=== PATIENT | female | born 1950 | race Caucasian/White ===

== ENCOUNTER → 2016-12-25 | Outpatient (REF) | payer MEDICARE, MEDICAID ==
[~2016-12-25] MED LIST: ADV250INH INH; BACL5TA PO; CLON0.5T PO; CLONI1TA PO; COLA100C PO; CYMB60CA3 PO; DEPA500T2 PO; GABA600T PO; IRON325T PO; MORP15TA2 PO; MOTR200T44 PO; MS C30TA PO; OXYC10TA12 PO; OXYC5CAP28 PO; PANT20TA PO; PROP160C PO; SERAQUIL; TYLE325T5 PO; VITA500019 PO; VITATAB74 PO
[2016-12-25 13:57] LABS: FERRITIN 137 NG/ML (8-252); PERCENT SATURATION 13.9 % (13.2-37.4); TOTAL IRON BINDING CAPACITY 296 UG/DL (250-450); TOTAL PROTEIN 6.7 GM/DL (6.4-8.2)
[2016-12-25 14:31] LABS: REASON FOR REVIEW COMPREHENSIVE REVIEW
[2016-12-26 12:48] LABS: ALBUMIN 2.71 GM/DL (3.29-5.55); ALBUMIN % 40.4 % (55.8-66.1); GAMMA GLOBULIN % 17.2 % (11.1-18.8)
[2016-12-27 00:06] LABS: BETA 2 MICROGLOBULIN 2.8 mg/L (0.6-2.4); FREE KAPPA LIGHT CHAINS SERUM 48.1 mg/L (3.30-19.40); FREE LAMBDA LIGHT CHAINS SERUM 59.97 mg/L (5.71-26.30); KAPPA/LAMBDA RATIO SERUM 0.8 (0.26-1.65)
== END ==
LOC: M LAB REF 13:10
PROVIDERS: ATTEND Internal Medicine Medical Oncology
DX: D64.9 Anemia, unspecified (principal)

== ENCOUNTER → 2017-01-13 | Outpatient (CLI) | payer MEDICARE, MEDICAID ==
[2017-01-13 16:02] LABS: MEAN CORPUSCULAR HEMOGLOBIN 28.8 pg (27.0-33.0); MEAN CORPUSCULAR HGB CONC 32.2 g/dl (32.0-36.5); MEAN CORPUSCULAR VOLUME 89.3 fl (80.0-96.0); RED CELL DISTRIBUTION WIDTH 14.6 % (11.5-14.5); WHITE BLOOD COUNT 7.6 K/mm3 (4.0-10.0)
== END ==
LOC: M LAB 15:13
PROVIDERS: ATTEND Physician Assistant Medical
DX: D50.9 Iron deficiency anemia, unspecified (principal)

== ENCOUNTER → 2017-01-21 | Outpatient (CLI) | payer MEDICARE, MEDICAID ==
[~2017-01-21] MED LIST changes: +GASTROGRAFIN SOLUTION 30ML (Q9963) As Ordered ONE; +ISOVUE-370 76% 100ML VIAL (Q9967) As Ordered ONE
--- NOTE | 2017-01-22 10:07 | REP ---
CT abdomen and pelvis without and with IV contrast: With oral contrast. History: Iron deficiency anemia. Comparison study April 11, 2015. CT contrast dose: 100 ml of Isovue [address] findings: Preliminary digital fitting room supervisor radiograph demonstrates clips in the right inguinal soft tissues and in the right upper quadrant. Bowel gas pattern is unremarkable. The liver and spleen are normal in size, homogeneous in texture. The intraluminal blood in the cardiac chambers is somewhat hypodense relative to myocardium consistent with the history of anemia. There is no evidence of pleural effusion. There is some atelectasis or scarring in the right middle lobe. No adrenal lesion is seen. The gallbladder is surgically absent with clips in the gallbladder fossa. Common bile duct measures 8 mm which is in normal range post cholecystectomy. There is a descending duodenal diverticulum. The main pancreatic duct is somewhat prominent measuring up to 4.7 mm. This is unchanged. The kidneys enhance symmetrically. There is a small peripheral cyst in the left mid kidney measuring 1.4 centimeters. The patient is status post hysterectomy. Small and large intestinal bowel loops are normal in the abdomen and pelvis. Normal appendix is seen. There are fairly numerous but normal-sized mesenteric lymph nodes in the small bowel mesentery. These are somewhat more prominent than on the prior study. No bowel wall mass lesion is seen. No free fluid or free air is observed. No abdominal wall defect seen. No bony destructive lesion is noted. Impression: 1. Post cholecystectomy and hysterectomy. Mildly dilated main pancreatic duct unchanged from prior CT. 2. Multiple normal-sized small bowel mesenteric lymph nodes increased from the prior CT etiology uncertain. 3. No other significant intra-abdominal abnormality. Mild discoid atelectasis versus scarring in the right middle lobe of the lung. Signed by Regino Bishop MD 01/22/2017 01:13 P
== END ==
LOC: M RAD 13:52
PROVIDERS: ATTEND Physician Assistant Medical
DX: D64.9 Anemia, unspecified (principal); R63.4 Abnormal weight loss
CPT/HCPCS: 74178; Q9963; Q9967

== ENCOUNTER → 2017-01-26 | Outpatient (CLI) | payer MEDICARE, MEDICAID ==
[~2017-01-26] MED LIST changes: +E-Z PAQUE 60% w/v SUSP 355ML BOTTLE As Ordered ONE; -GASTROGRAFIN SOLUTION 30ML (Q9963) As Ordered ONE; -ISOVUE-370 76% 100ML VIAL (Q9967) As Ordered ONE
--- NOTE | 2017-01-26 17:09 | REP ---
SMALL BOWEL FOLLOW-THROUGH: The procedure was performed under the direct supervision of Dr. Bishop. The images were reviewed with Dr. Bishop. The geoduck diver film shows no organomegaly or pathological masses. The intestinal gas pattern is nonspecific. There are surgical clips noted overlying the midline of the abdomen. There are also surgical clips and bowel sutures noted in the pelvis. There is scoliosis. There are degenerative changes of the spine. There are vascular calcifications identified. Liquid barium was administered and the barium column was followed through the small bowel to the level of the terminal ileum. Small bowel transit time is approximately 2 hours. Gentle palpation shows all loops are freely movable and pliable. There are diverticula seen within the duodenum, jejunum and tiny diverticula seen in the terminal ileum. There are no fixed or angulated loops. The small bowel mucosal pattern is normal in course and caliber. There is no transition to suggest a partial small bowel obstruction. Spot filming of the terminal ileum shows tiny diverticula, otherwise unremarkable. IMPRESSION: There is small bowel diverticulosis with diverticula seen in the duodenum, jejunum and tiny diverticula seen in the terminal ileum. 1 minute and 17 seconds of fluoroscopy time was utilized for this procedure. Reviewed by KEN Ambrosio 01/28/2017 08:30 AEdited and Signed by Regino Bishop MD 01/28/2017 06:13 P
== END ==
LOC: M RAD 08:30
PROVIDERS: ATTEND Physician Assistant Medical
DX: D64.9 Anemia, unspecified (principal); R63.4 Abnormal weight loss; K57.30 Diverticulosis of large intestine without perforation or abscess without bleeding

== ENCOUNTER → 2017-01-30 | Outpatient (REF) | payer MEDICARE, MEDICAID ==
[~2017-01-30] MED LIST changes: -E-Z PAQUE 60% w/v SUSP 355ML BOTTLE As Ordered ONE; +GABA-283 PO
[2017-01-30 13:15] LABS: FERRITIN 65 NG/ML (8-252)
[2017-01-30 13:39] LABS: VITAMIN B12 LEVEL 796 PG/ML (247-911)
== END ==
LOC: M LAB REF 12:25
PROVIDERS: ATTEND Internal Medicine Medical Oncology
DX: D53.9 Nutritional anemia, unspecified (principal)

== ENCOUNTER → 2017-02-05 | Outpatient (CLI) | payer MEDICARE, MEDICAID ==
[~2017-02-05] VITALS: Ht 170.2 cm; Wt 62.1 kg
[~2017-02-05] MED LIST changes: +LIDOCAINE 2% INJ 100 MG/5 ML SDV (FOR ANES.) As Ordered ONE; +LOSA100T36 PO; +NS 1,000 ML IV SCH; +PROPOFOL 200 MG/20 ML VIAL As Ordered ONE; +SIMETHICONE 40MG/0.6ML DROPS 30ML As Ordered ONE
--- NOTE | 2017-02-05 15:23 | ROOR ---
Patient Name: Tamra Masters Procedure Date: 02/05/2017 3:04 PM Date of : 1950 Age: 66 Room: [facility] Gender: Female Note Status: Finalized Procedure: Upper GI endoscopy Indications: Iron deficiency anemia Providers: Irvin SIMON MD Referring MD: Leobardo TAI MD, Fe Brady MD Requesting Provider: Medicines: Monitored Anesthesia Care Complications: No immediate complications. Procedure: Pre-Anesthesia Assessment: - The heart rate, respiratory rate, oxygen saturations, blood pressure, adequacy of pulmonary ventilation, and response to care were monitored throughout the procedure. The Endoscope was introduced through the mouth, and advanced to the third part of duodenum. The upper GI endoscopy was accomplished without difficulty. The patient tolerated the procedure well. Findings: The examined esophagus was normal. Mild inflammation was found in the gastric antrum. Biopsies were taken with a cold forceps for histology. Two diminutive angioectasias without bleeding were found in the first portion of the duodenum and in the second portion of the duodenum. Coagulation for tissue destruction using argon beam at 0.8 liters/minute and 35 trimble was successful. The exam of the duodenum was otherwise normal. Biopsies for histology were taken with a cold forceps in the second portion of the duodenum and in the third portion of the duodenum for evaluation of celiac disease. Impression: - Normal esophagus. - Mild antral gastritis. Biopsied. - Two tiny non-bleeding angioectasias in the duodenum. Treated with argon beam coagulation. - Biopsies in the duodenum were taken with a cold forceps for evaluation of celiac disease. Recommendation: - Observe patient's clinical course. - Perform a colonoscopy today. Irvin Simon MD Irvin SIMON MD 02/05/2017 3:23:29 PM This report has been signed electronically. Number of Addenda: 0 Note Initiated On: 02/05/2017 3:04 PM Estimated Blood Loss: Estimated blood loss: none.
--- NOTE | 2017-02-05 15:47 | ROOR ---
Patient Name: Tamra Masters Procedure Date: 02/05/2017 3:05 PM Date of : 1950 Age: 66 Room: [facility] Gender: Female Note Status: Finalized Procedure: Colonoscopy Indications: Anemia, Weight loss Providers: Irvin SIMON MD Referring MD: Leobardo TAI MD, Fe Brady MD Requesting Provider: Medicines: Monitored Anesthesia Care Complications: No immediate complications. Procedure: Pre-Anesthesia Assessment: - The heart rate, respiratory rate, oxygen saturations, blood pressure, adequacy of pulmonary ventilation, and response to care were monitored throughout the procedure. The Colonoscope was introduced through the anus and advanced to 4 cm into the ileum. The colonoscopy was performed without difficulty. The patient tolerated the procedure well. The quality of the bowel preparation was good. Findings: The perianal and digital rectal examinations were normal. (Exam: Complete, Prep: Good or Excellent.) Small Internal Hemorrhoids. The entire examined colon appeared normal on direct and retroflexion views. The terminal ileum appeared normal. Impression: - Small Internal Hemorrhoids. - The entire colon is normal on direct and retroflexion views. - The examined portion of the ileum was normal. - No specimens collected. Recommendation: - Continue present medications. Irvin Simon MD Irvin SIMON MD 02/05/2017 3:47:09 PM This report has been signed electronically. Number of Addenda: 0 Note Initiated On: 02/05/2017 3:05 PM Estimated Blood Loss: Estimated blood loss: none.
[2017-02-05 16:15] VITALS: BP 159/81
== END | disposition home or self-care (01) ==
LOC: M OPP 11:10
PROVIDERS: ATTEND Internal Medicine Gastroenterology
DX: D50.9 Iron deficiency anemia, unspecified (principal); R63.4 Abnormal weight loss; K64.8 Other hemorrhoids; K29.70 Gastritis, unspecified, without bleeding; K31.819 Angiodysplasia of stomach and duodenum without bleeding; I10 Essential (primary) hypertension; R12 Heartburn; M32.9 Systemic lupus erythematosus, unspecified; G43.909 Migraine, unspecified, not intractable, without status migrainosus; G62.9 Polyneuropathy, unspecified; G25.0 Essential tremor; Z86.73 Personal history of transient ischemic attack (TIA), and cerebral infarction without residual deficits; J44.9 Chronic obstructive pulmonary disease, unspecified; F41.9 Anxiety disorder, unspecified; F32.9 Major depressive disorder, single episode, unspecified; F17.210 Nicotine dependence, cigarettes, uncomplicated; Z88.0 Allergy status to penicillin; Z88.2 Allergy status to sulfonamides; Z88.8 Allergy status to other drugs, medicaments and biological substances; Z91.040 Latex allergy status; Z79.899 Other long term (current) drug therapy; Z80.8 Family history of malignant neoplasm of other organs or systems

== ENCOUNTER → 2017-03-13 | Outpatient (REF) | payer MEDICARE, MEDICAID ==
[~2017-03-13] MED LIST changes: -COLA100C PO; +COLA100C3 PO; -LIDOCAINE 2% INJ 100 MG/5 ML SDV (FOR ANES.) As Ordered ONE; -NS 1,000 ML IV SCH; -PROPOFOL 200 MG/20 ML VIAL As Ordered ONE; -SIMETHICONE 40MG/0.6ML DROPS 30ML As Ordered ONE
[2017-03-13 14:22] LABS: PERCENT SATURATION 7.3 % (13.2-37.4)
== END ==
LOC: M LAB REF 13:35
PROVIDERS: ATTEND Internal Medicine Medical Oncology
DX: D50.9 Iron deficiency anemia, unspecified (principal)

== ENCOUNTER → 2017-04-16 | Outpatient (CLI) | payer MEDICARE, MEDICAID ==
--- NOTE | 2017-04-16 14:10 | REP ---
REASON: Tobacco abuse. COMPARISON: Multiple, the latest of which is dated 12/19/2016 from [facility]. There is stable biapical pleuroparenchymal scarring. There are tiny stable inferior right middle lobe nodules. In the left upper lobe there is a 7 mm sized nodule representing a change from all priors. IMPRESSION: Positive screening CT examination of the lungs with a new left upper lobe nodule measuring 7 mm. Signed by Rei Garcia DO 04/16/2017 02:27 P
== END ==
LOC: M RAD 12:42
PROVIDERS: ATTEND Internal Medicine Medical Oncology
DX: Z12.2 Encounter for screening for malignant neoplasm of respiratory organs (principal); R91.8 Other nonspecific abnormal finding of lung field; F17.210 Nicotine dependence, cigarettes, uncomplicated

== ENCOUNTER → 2017-04-21 | Outpatient (REF) | payer MEDICARE, MEDICAID ==
[2017-04-21 14:01] LABS: PERCENT SATURATION 7.7 % (13.2-37.4)
== END ==
LOC: M LAB REF 13:17
PROVIDERS: ATTEND Internal Medicine Medical Oncology
DX: D50.9 Iron deficiency anemia, unspecified (principal)

== ENCOUNTER → 2017-04-30 | Outpatient (REF) | payer MEDICARE, MEDICAID | LOC: M LAB REF 10:40 | PROVIDERS: ATTEND Internal Medicine Medical Oncology | DX: D46.4 Refractory anemia, unspecified (principal) ==

== ENCOUNTER → 2017-05-11 | Outpatient (REF) | payer MEDICARE, MEDICAID ==
[2017-05-11 19:10] LABS: RETIC HEMOGLOBIN CONTENT CHr 33.8 PG (24-36); RETICULOCYTE % ADVIA2120 1.8 % (0.5-1.5)
[2017-05-11 20:25] LABS: IMMUNOGLOBULIN G 1250 MG/DL (681-1648); IMMUNOGLOBULIN M 50.5 MG/DL (40-230)
[2017-05-16 00:06] LABS: ANTI PARVO VIRUS LEVEL IGG 2.2 index (0.0-0.8); ANTI PARVO VIRUS LEVEL IgM 0.1 index (0.0-0.8); PARVOVIRUS B19 QUANT PCR Negative copies/mL (Negative); SJOGREN'S ANTI SS-A <0.2 AI (0.0-0.9); SJOGREN'S ANTI SS-B <0.2 AI (0.0-0.9)
== END ==
LOC: M LAB REF 16:41
PROVIDERS: ATTEND Internal Medicine Medical Oncology
DX: D64.9 Anemia, unspecified (principal)

== ENCOUNTER → 2017-05-14 | Outpatient (REF) | payer MEDICARE, MEDICAID ==
[~2017-05-14] MED LIST changes: -COLA100C3 PO; +COLA100C5 PO; -MS C30TA PO; +MS C30TA6 PO
== END ==
LOC: M LAB REF 11:15
PROVIDERS: ATTEND Internal Medicine Medical Oncology
DX: D64.9 Anemia, unspecified (principal)

== ENCOUNTER → 2017-08-04 | Outpatient (REF) | payer MEDICARE, MEDICAID | LOC: M LAB REF 12:59 | PROVIDERS: ATTEND Internal Medicine Medical Oncology | DX: D46.9 Myelodysplastic syndrome, unspecified (principal) ==

== ENCOUNTER → 2017-11-03 | Outpatient (CLI) | payer MEDICARE, MEDICAID ==
[~2017-11-03] MED LIST changes: +GASTROGRAFIN SOLUTION 30ML (Q9963) As Ordered ONE; +ISOVUE-370 76% 100ML VIAL (Q9967) As Ordered ONE
--- NOTE | 2017-11-04 15:27 | REP ---
CT CHEST WITH IV CONTRAST: HISTORY: Anemia. Weight loss. Question lymphoma, lymphadenopathy. COMPARISON: Chest x-ray 11/14/2014. CT CONTRAST DOSE: 100 mL of intravenous Isovue-370. CT FINDINGS: There is lobar atelectasis of the right middle lobe with air bronchograms and complete collapse. No endobronchial or peribronchial mass lesion is seen. There is some bronchial wall calcification noted bilaterally. No hilar or mediastinal mass or adenopathy is observed. In comparison with the upper cuts from CT study of the abdomen 01/21/2017, this appears to have been chronic, although it is incompletely seen on the prior CT study images. No pleural or pericardial effusion is seen. There is good opacification of the pulmonary arterial tree and the aorta and its branches. There is no evidence of pulmonary embolus, aortic dissection, or aneurysm. No adrenal lesion is seen on either side. There are clips in the gallbladder fossa post cholecystectomy. Mildly prominent intrahepatic and extrahepatic bile ducts are seen. Common bile duct measures 8 mm, which is normal post cholecystectomy. The pancreatic duct is mildly prominent as well. The pancreas is incompletely seen. These findings are unchanged from CT study 01/21/2017. There is a small cyst posterior to the left lower kidney. The lungs overall are otherwise hyperinflated but clear. No significant pulmonary nodule or mass lesion is seen. No bony destructive lesion is appreciated. There are mild degenerative disc changes in the thoracic spine. IMPRESSION: Chronic lobar collapsed right middle lobe. Otherwise, no active cardiopulmonary disease. The lungs are somewhat hyperinflated. Post cholecystectomy. Slightly prominent biliary tree and pancreatic ducts, unchanged from 01/21/2017. Signed by Regino Bishop MD 11/04/2017 04:58 P
--- NOTE | 2017-11-04 15:29 | REP ---
CT abdomen and pelvis with IV and oral contrast: History: Anemia. Weight loss. Question lymphoma or lymphadenopathy. Comparison CT study January [address] contrast dose: 100 mL of intravenous Isovue [address] findings: Digital preliminary account support associate radiograph shows clips in the right upper quadrant post cholecystectomy. Moderate stool is seen. The liver and the spleen are normal in size and homogeneous in texture. There is one tiny 4 mm cyst in the right lobe. Intrahepatic and periportal bile ducts are slightly prominent post cholecystectomy, but unchanged from the January 21, 2017 study. CBD is 0.8 cm. Main pancreatic duct is slightly prominent also unchanged from the prior study. No pancreatic mass lesion is observed. Kidneys enhance symmetrically and are morphologically intact. No retroperitoneal mass or adenopathy is seen. There is a large amount of formed stool throughout the colon. A normal appendix is seen. Formed stool is seen filling, but not dilating the rectum. No obstructive large or small bowel lesion is seen. No mesenteric mass or adenopathy is seen. No pelvic adenopathy or mass lesion is observed. There is diffuse osteopenia. No focal bony destructive lesion is seen. Impression: Moderate stool throughout the colon. Bile ducts and pancreatic duct at the upper range of normal post cholecystectomy, but unchanged from January 21, 2017. No acute abdominal or pelvic abnormality seen. Signed by Regino Bishop MD 11/04/2017 04:58 P
== END ==
LOC: M RAD 11:19
PROVIDERS: ATTEND Internal Medicine Medical Oncology
DX: D64.9 Anemia, unspecified (principal); R63.4 Abnormal weight loss
CPT/HCPCS: 71260; 74178; Q9963; Q9967

== ENCOUNTER 2017-11-23 12:18 | Emergency (ER) | payer MEDICARE, MEDICAID ==
[2017-11-23 13:13] LABS: BASO % 0.2 % (0.0-1.0); EOS # 0.2 10^3/uL (0.0-0.50); EOS % 2.4 % (0.0-3.0); HEMATOCRIT 25.5 % (36.0-47.0); HEMOGLOBIN 8.4 g/dl (12.0-16.0); IMMATURE GRANULOCYTE # 0.1 10^3/uL (0-0); IMMATURE GRANULOCYTE % 0.5 % (0-0); LYMPH # 0.8 10^3/uL (1.5-4.5); LYMPH % 8.1 % (24.0-44.0); MEAN CORPUSCULAR HEMOGLOBIN 30.1 pg (27.0-33.0); MEAN CORPUSCULAR HGB CONC 32.9 g/dl (32.0-36.5); MEAN CORPUSCULAR VOLUME 91.4 fl (80.0-96.0); MONO # 0.7 10^3/uL (0.0-0.8); MONO % 6.7 % (0.0-5.0); NEUTROPHILS # 8.3 10^3/uL (1.8-7.7); NEUTROPHILS % 82.1 % (36.0-66.0); PLATELET COUNT, AUTOMATED 350 10^3/uL (150-450); RED BLOOD COUNT 2.79 10^6/uL (4.00-5.40); RED CELL DISTRIBUTION WIDTH 18.3 % (11.5-14.5); WHITE BLOOD COUNT 10.1 10^3/uL (4.0-10.0)
[2017-11-23] MEDS: NS 1,000 ML IV (13:18)
[2017-11-23 13:26] LABS: INR 0.98
[2017-11-23 13:39] LABS: ANION GAP 8 MEQ/L (8-16); BLOOD UREA NITROGEN 13 MG/DL (7-18); CALCIUM LEVEL 8.4 MG/DL (8.8-10.2); CARBON DIOXIDE LEVEL 27 MEQ/L (21-32); CHLORIDE LEVEL 103 MEQ/L (98-107); CPK CREATINE PHOSPHOKINASE 44 U/L (26-192); CREATININE FOR GFR 1.03 MG/DL (0.55-1.02); GLOMERULAR FILTRATION RATE 57.1 (>45); GLUCOSE, FASTING 78 MG/DL (80-110); POTASSIUM SERUM 3.8 MEQ/L (3.5-5.1); SODIUM LEVEL 138 MEQ/L (136-145); TROPONIN I 0.02 NG/ML (< 0.10)
[2017-11-23 13:45] LABS: CK-MB VALUE MASS 3.3 NG/ML (0.0-3.6)
== END 2017-11-23 16:20 | disposition home or self-care (01) ==
LOC: M ED 12:18
DX: R55 Syncope and collapse (principal); D63.8 Anemia in other chronic diseases classified elsewhere; J45.909 Unspecified asthma, uncomplicated; J44.9 Chronic obstructive pulmonary disease, unspecified; I10 Essential (primary) hypertension; Z79.899 Other long term (current) drug therapy; Z88.1 Allergy status to other antibiotic agents; Z91.040 Latex allergy status; Z88.0 Allergy status to penicillin; Z88.2 Allergy status to sulfonamides; Z87.891 Personal history of nicotine dependence
CPT/HCPCS: 93005

== ENCOUNTER 2017-11-24 12:03 | Observation (INO) | payer MEDICARE, MEDICAID ==
[2017-11-24 14:31] LABS: BASO % 0.2 % (0.0-1.0); EOS # 0.2 10^3/uL (0.0-0.50); EOS % 1.6 % (0.0-3.0); HEMATOCRIT 25.1 % (36.0-47.0); HEMOGLOBIN 8.3 g/dl (12.0-16.0); IMMATURE GRANULOCYTE # 0.1 10^3/uL (0-0); IMMATURE GRANULOCYTE % 0.6 % (0-0); LYMPH # 0.8 10^3/uL (1.5-4.5); LYMPH % 6.4 % (24.0-44.0); MEAN CORPUSCULAR HEMOGLOBIN 30.3 pg (27.0-33.0); MEAN CORPUSCULAR HGB CONC 33.1 g/dl (32.0-36.5); MEAN CORPUSCULAR VOLUME 91.6 fl (80.0-96.0); MONO # 0.9 10^3/uL (0.0-0.8); MONO % 7.5 % (0.0-5.0); NEUTROPHILS # 10.2 10^3/uL (1.8-7.7); NEUTROPHILS % 83.7 % (36.0-66.0); PLATELET COUNT, AUTOMATED 337 10^3/uL (150-450); RED BLOOD COUNT 2.74 10^6/uL (4.00-5.40); RED CELL DISTRIBUTION WIDTH 18.2 % (11.5-14.5); WHITE BLOOD COUNT 12.1 10^3/uL (4.0-10.0)
[2017-11-24 14:46] LABS: ANION GAP 6 MEQ/L (8-16); BLOOD UREA NITROGEN 13 MG/DL (7-18); CALCIUM LEVEL 8.3 MG/DL (8.8-10.2); CARBON DIOXIDE LEVEL 27 MEQ/L (21-32); CHLORIDE LEVEL 106 MEQ/L (98-107); CPK CREATINE PHOSPHOKINASE 34 U/L (26-192); CREATININE FOR GFR 0.89 MG/DL (0.55-1.02); FREE T4 1.27 NG/DL (0.76-1.46); GLOMERULAR FILTRATION RATE > 60.0 (>45); GLUCOSE, FASTING 77 MG/DL (80-110); MAGNESIUM LEVEL 1.5 MG/DL (1.8-2.4); POTASSIUM SERUM 3.7 MEQ/L (3.5-5.1); SODIUM LEVEL 139 MEQ/L (136-145); TROPONIN I 0.03 NG/ML (< 0.10); VALPROIC ACID (DEPAKOTE) 50.2 UG/ML (50.0-100.0)
[2017-11-24 14:52] LABS: CK-MB VALUE MASS 2.5 NG/ML (0.0-3.6); MB/CK RELATIVE INDEX 7.35 (< OR =4)
[2017-11-24 15:13] LABS: PHOSPHORUS LEVEL 3.1 MG/DL (2.5-4.9)
[2017-11-24] MEDS: MAGNESIUM OXIDE 400 MG TAB (MAG-OX) PO ×3 (16:41)
[2017-11-24 16:43] LABS: IMMEDIATE SPIN CROSSMATCH 1 1
[2017-11-24] MEDS ORDERED: ONDANSETRON 4MG/2ML VIAL (J2405) IV ×3 (16:45)
[2017-11-24] MEDS ORDERED: DOCUSATE SODIUM 100 MG CAP PO ×3 (17:30)
[2017-11-24] MEDS: NS 1,000 ML IV ×3 (19:03)
[2017-11-24] MEDS: ACETAMINOPHEN TAB 650MG DOSE (2X325MG) PO ×3 (19:51)
[2017-11-24 20:24] LABS: HEMATOCRIT 30.8 % (36.0-47.0); HEMOGLOBIN 10.2 g/dl (12.0-16.0); MEAN CORPUSCULAR HEMOGLOBIN 30.1 pg (27.0-33.0); MEAN CORPUSCULAR HGB CONC 33.1 g/dl (32.0-36.5); MEAN CORPUSCULAR VOLUME 90.9 fl (80.0-96.0); PLATELET COUNT, AUTOMATED 346 10^3/uL (150-450); RED BLOOD COUNT 3.39 10^6/uL (4.00-5.40); RED CELL DISTRIBUTION WIDTH 17.1 % (11.5-14.5); WHITE BLOOD COUNT 12.4 10^3/uL (4.0-10.0)
[2017-11-24] MEDS: cloNIDine 0.1 MG TAB PO ×3 (22:47)
[2017-11-24] MEDS: DULoxetine 30 MG CAP (CYMBALTA) PO ×3 (22:48)
[2017-11-24] MEDS: DIVALPROEX 500MG *ER* TAB PO ×3 (22:49)
[2017-11-24] MEDS: GABAPENTIN 400 MG CAP PO ×3 (22:52)
[2017-11-24] MEDS: SENOKOT S TAB PO ×3 (22:53)
[2017-11-25] MEDS: ADVAIR HFA 115/21MCG INHALER INH ×9 (01:54→20:33)
[2017-11-25 06:32] LABS: HEMATOCRIT 27.3 % (36.0-47.0); HEMOGLOBIN 9.1 g/dl (12.0-16.0); MEAN CORPUSCULAR HEMOGLOBIN 29.9 pg (27.0-33.0); MEAN CORPUSCULAR HGB CONC 33.3 g/dl (32.0-36.5); MEAN CORPUSCULAR VOLUME 89.8 fl (80.0-96.0); PLATELET COUNT, AUTOMATED 306 10^3/uL (150-450); RED BLOOD COUNT 3.04 10^6/uL (4.00-5.40); RED CELL DISTRIBUTION WIDTH 17.2 % (11.5-14.5); WHITE BLOOD COUNT 13.7 10^3/uL (4.0-10.0)
[2017-11-25 07:03] LABS: ANION GAP 9 MEQ/L (8-16); BLOOD UREA NITROGEN 14 MG/DL (7-18); CALCIUM LEVEL 8.2 MG/DL (8.8-10.2); CARBON DIOXIDE LEVEL 24 MEQ/L (21-32); CHLORIDE LEVEL 110 MEQ/L (98-107); CREATININE FOR GFR 0.81 MG/DL (0.55-1.02); FERRITIN 142 NG/ML (8-252); GLOMERULAR FILTRATION RATE > 60.0 (>45); GLUCOSE, FASTING 78 MG/DL (80-110); IRON (FE) 74 UG/DL (50-170); PERCENT SATURATION 39.2 % (13.2-45.0); POTASSIUM SERUM 3.4 MEQ/L (3.5-5.1); SODIUM LEVEL 143 MEQ/L (136-145); TOTAL IRON BINDING CAPACITY 189 UG/DL (250-450)
[2017-11-25 07:55] LABS: MAGNESIUM LEVEL 1.4 MG/DL (1.8-2.4)
[2017-11-25] MEDS: GABAPENTIN 400 MG CAP PO ×9 (08:28→20:21)
[2017-11-25] MEDS: ACETAMINOPHEN TAB 650MG DOSE (2X325MG) PO ×3 (08:28)
[2017-11-25] MEDS: SENOKOT S TAB PO ×6 (08:28→20:21)
[2017-11-25] MEDS: PROPRANOLOL 60 MG LA CAP PO ×3 (08:30)
[2017-11-25] MEDS: cloNIDine 0.1 MG TAB PO ×6 (08:31→20:21)
[2017-11-25] MEDS: DULoxetine 30 MG CAP (CYMBALTA) PO ×6 (08:31→20:21)
[2017-11-25] MEDS: DIVALPROEX 500MG *ER* TAB PO ×12 (08:31→20:21)
[2017-11-25 11:01] LABS: VITAMIN B12 LEVEL 554 PG/ML (247-911)
[2017-11-25] MEDS: MAG SULF 1GM/100ML (MAG RUN) 1 GM in APPROPRIATE DILUENT 1 EA IV ×6 (11:05→12:22)
[2017-11-25] MEDS: POTASSIUM CHLORIDE 10 MEQ SR TABLET PO ×3 (11:06)
[2017-11-26] MEDS: ADVAIR HFA 115/21MCG INHALER INH ×3 (08:02)
[2017-11-26 09:33] LABS: HEMOGLOBIN 9.7 g/dl (12.0-16.0); MEAN CORPUSCULAR HEMOGLOBIN 30.4 pg (27.0-33.0); MEAN CORPUSCULAR HGB CONC 33.4 g/dl (32.0-36.5); MEAN CORPUSCULAR VOLUME 90.9 fl (80.0-96.0); PLATELET COUNT, AUTOMATED 342 10^3/uL (150-450); RED BLOOD COUNT 3.19 10^6/uL (4.00-5.40); RED CELL DISTRIBUTION WIDTH 17.5 % (11.5-14.5); WHITE BLOOD COUNT 13.8 10^3/uL (4.0-10.0)
[2017-11-26] MEDS: DIVALPROEX 500MG *ER* TAB PO ×3 (09:57)
[2017-11-26] MEDS: DULoxetine 30 MG CAP (CYMBALTA) PO ×3 (09:57)
[2017-11-26] MEDS: SENOKOT S TAB PO ×3 (09:57)
[2017-11-26] MEDS: PROPRANOLOL 60 MG LA CAP PO ×3 (09:57)
[2017-11-26] MEDS: cloNIDine 0.1 MG TAB PO ×3 (09:58)
[2017-11-26] MEDS: GABAPENTIN 400 MG CAP PO ×3 (09:58)
[2017-11-26 10:18] LABS: ANION GAP 12 MEQ/L (8-16); BLOOD UREA NITROGEN 13 MG/DL (7-18); CALCIUM LEVEL 8.4 MG/DL (8.8-10.2); CARBON DIOXIDE LEVEL 24 MEQ/L (21-32); CHLORIDE LEVEL 108 MEQ/L (98-107); CREATININE FOR GFR 0.69 MG/DL (0.55-1.02); GLOMERULAR FILTRATION RATE > 60.0 (>45); GLUCOSE, FASTING 68 MG/DL (80-110); MAGNESIUM LEVEL 2.1 MG/DL (1.8-2.4); POTASSIUM SERUM 3.7 MEQ/L (3.5-5.1); SODIUM LEVEL 144 MEQ/L (136-145)
== END 2017-11-26 13:15 | disposition home health service (06) ==
LOC: M MS5PR 11-25 16:14 → M ED 12:03 → M ED INP 16:39 → M PCU 18:28
DX: D64.9 Anemia, unspecified (principal); D46.9 Myelodysplastic syndrome, unspecified; J44.9 Chronic obstructive pulmonary disease, unspecified; I10 Essential (primary) hypertension; E83.39 Other disorders of phosphorus metabolism; E83.42 Hypomagnesemia; R51 Headache; F32.9 Major depressive disorder, single episode, unspecified; K21.9 Gastro-esophageal reflux disease without esophagitis; M19.90 Unspecified osteoarthritis, unspecified site; Z82.49 Family history of ischemic heart disease and other diseases of the circulatory system
CPT/HCPCS: J3475

== ENCOUNTER → 2018-02-02 | Outpatient (CLI) | payer MEDICARE, MEDICAID | LOC: M PLARAD 11:31 | DX: Z87.891 Personal history of nicotine dependence (principal); R63.4 Abnormal weight loss | CPT/HCPCS: 78815 ==

== ENCOUNTER → 2018-02-18 | Outpatient (REF) | payer MEDICAID, MEDICARE | LOC: M LAB REF 20:20 | DX: N39.0 Urinary tract infection, site not specified (principal) ==

== ENCOUNTER → 2018-05-24 | Outpatient (REF) | payer MEDICARE, MEDICAID ==
[2018-05-24 19:09] LABS: ERYTHROCYTE SEDIMENTATION RATE 22 mm/hr (0-30)
[2018-05-24 19:22] LABS: ESTIMATED AVERAGE GLUCOSE 120 MG/DL (60-110); HEMOGLOBIN A1c 5.8 %
[2018-05-24 19:27] LABS: FOLATE 22.4 NG/ML; VITAMIN B12 LEVEL > 2000 PG/ML
[2018-05-24 19:46] LABS: FREE T4 1.03 NG/DL (0.76-1.46); RHEUMATOID FACTOR QUANT < 10.0 IU/ML (<15.0)
[2018-05-24 19:46] LABS: VALPROIC ACID (DEPAKOTE) 53.8 UG/ML (50.0-100.0)
[2018-05-26 14:58] LABS: ANTINUCLEAR ANTIBODIES DIRECT Negative (Negative)
== END ==
LOC: M LABNEURO 14:11
DX: G62.9 Polyneuropathy, unspecified (principal); M54.2 Cervicalgia; M54.5 Low back pain
CPT/HCPCS: 82746

== ENCOUNTER → 2019-02-22 | Outpatient (CLI) | payer MEDICARE, MEDICAID ==
[~2019-02-22] MED LIST changes: +ADV500INH; +BACL-60 PO; -BACL5TA PO; +CLON0.2T PO; -CLON0.5T PO; +CLON0.5T8 PO; -GABA-283 PO; +GABA-843 PO; +GABA-845 PO; -GABA600T PO; +GABA600T4 PO; +GABA800T4 PO; -GASTROGRAFIN SOLUTION 30ML (Q9963) As Ordered ONE; -ISOVUE-370 76% 100ML VIAL (Q9967) As Ordered ONE; +KLOR20TA42 PO; -LOSA100T36 PO; +LOSA100T50 PO; +LYRI75CA PO; +METH25TA3 PO; +OXYCOD/APAP; -PANT20TA PO; +PANT20TA2 PO; +PANT40TA3 OR; +PERC7.5T11 PO; +PROP120C PO; +SPIR-10 PO; +VENTAER OR; +ZANTTAB9 PO
--- NOTE | 2019-02-25 13:38 | DEXA ---
AP SPINE L1 - L4 1.115 -0.6 1.0 LT FEMUR TOTAL 0.752 -2.0 -0.7 LT NECK 0.763 -2.0 -0.4 RT FEMUR TOTAL 0.723 -2.3 -0.9 RT NECK 0.709 -2.4 -0.8 TOTAL BODY TOTAL OTHER COMMENTS: Normal bone densitometry of the spine. There is low bone density of hips. FOLLOW-UP: Recommendation for the next bone density exam: 2 years. JODI
== END ==
LOC: M WHC 13:15
PROVIDERS: ATTEND Internal Medicine
DX: Z13.820 Encounter for screening for osteoporosis (principal); M85.89 Other specified disorders of bone density and structure, multiple sites

== ENCOUNTER 2019-06-15 13:30 | Observation (INO) | payer MEDICARE, MEDICAID ==
[~2019-06-15] VITALS: Ht 167.6 cm; Wt 84.2 kg
[~2019-06-15 13:30] MED LIST changes: +ACET-683 PO; +RANI75TA15 PO; +TETR1CAP PO; +VENTAER INH; -VENTAER OR
[2019-06-15 14:46] LABS: BASO % 0.2 % (0.0-1.0); HEMATOCRIT 29.7 % (36.0-47.0); HEMOGLOBIN 10.2 g/dl (12.0-15.5); LYMPH # 0.6 10^3/uL (1.5-4.5); LYMPH % 9.1 % (24.0-44.0); MEAN CORPUSCULAR HEMOGLOBIN 32.9 pg (27.0-33.0); MEAN CORPUSCULAR HGB CONC 34.3 g/dl (32.0-36.5); MEAN CORPUSCULAR VOLUME 95.8 fl (80.0-96.0); MONO # 0.2 10^3/uL (0.0-0.8); MONO % 3.6 % (0.0-5.0); NEUTROPHILS # 5.3 10^3/uL (1.8-7.7); NEUTROPHILS % 85.8 % (36.0-66.0); PLATELET COUNT, AUTOMATED 321 10^3/uL (150-450); WHITE BLOOD COUNT 6.1 10^3/uL (4.0-10.0)
[2019-06-15] MEDS ORDERED: GABAPENTIN 100 MG CAP PO ONE (15:15)
[2019-06-15] MEDS ORDERED: KETOROLAC 30 MG/ML VIAL (J1885) IV ONE (15:15)
[2019-06-15] MEDS: NS 1,000 ML IV SCH ×2 (15:18→21:55)
--- NOTE | 2019-06-15 15:51 | REP ---
Clinical: Chest pain. Admission. Comparison: 11/24/2017. Findings: Mediastinum and cardiac silhouette are stable. Lung manjarrez demonstrate chronic changes primarily involving the left base. Trace atelectasis cannot be excluded. No focal consolidation. No obvious effusion. No pneumothorax. Skeletal structures intact. Impression: Chronic-appearing changes. Electronically Signed by Rickey Solorio MD 06/15/2019 03:42 P
[2019-06-15 15:59] LABS: ALBUMIN 2.8 GM/DL (3.2-5.2); ALT/SGPT 13 U/L (12-78); BILIRUBIN,DIRECT 0.1 MG/DL (0.0-0.2); BILIRUBIN,TOTAL 0.3 MG/DL (0.2-1.0); BLOOD UREA NITROGEN 13 MG/DL (7-18); CALCIUM LEVEL 8.5 MG/DL (8.8-10.2); CARBON DIOXIDE LEVEL 28 MEQ/L (21-32); CHLORIDE LEVEL 90 MEQ/L (98-107); CREATININE FOR GFR 0.98 MG/DL (0.55-1.30); GLOMERULAR FILTRATION RATE > 60.0 (>45); GLUCOSE, FASTING 111 MG/DL (70-100); LIPASE 210 U/L (73-393); POTASSIUM SERUM 4.2 MEQ/L (3.5-5.1); SODIUM LEVEL 125 MEQ/L (136-145); TOTAL PROTEIN 6.3 GM/DL (6.4-8.2)
[2019-06-15] MEDS ORDERED: ACETAMINOPHEN TAB 650MG DOSE (2X325MG) PO PRN (17:00)
[2019-06-15] MEDS ORDERED: MAALOX 30 ML SUSP *UDC PO PRN (17:00)
[2019-06-15] MEDS ORDERED: MOM 30ML SUSPENSION UDC PO PRN (17:00)
[2019-06-15] MEDS ORDERED: CLONI1TA PO (17:23)
[2019-06-15] MEDS ORDERED: MAGN400T PO (17:23)
[2019-06-15] MEDS ORDERED: RANI1TAB38 PO (17:23)
[2019-06-15] MEDS ORDERED: POTA10TA67 PO (17:23)
[2019-06-15] MEDS ORDERED: ADV500INH INH (17:23)
[2019-06-15] MEDS ORDERED: DULO30CA9 PO (17:23)
[2019-06-15] MEDS ORDERED: FURO20TA2 PO (17:23)
[2019-06-15] MEDS ORDERED: NORT25CA2 PO (17:23)
[2019-06-15] MEDS ORDERED: GABA-845 PO (17:23)
[2019-06-15] MEDS ORDERED: ALBUTEROL 90 MCG/ACT 8GM HFA INHALER INH PRN (20:00)
[2019-06-15] MEDS: ADVAIR HFA 230/21MCG INHALER INH SCH (20:00)
[2019-06-15] MEDS ORDERED: DOCUSATE SODIUM 100 MG CAP PO PRN (20:00)
[2019-06-15 20:50] VITALS: BP 157/77
[2019-06-15] MEDS: DIVALPROEX 500MG *ER* TAB PO SCH (21:53)
[2019-06-15] MEDS: ENOXAPARIN 100MG/1ML SYRINGE (J1650) SC SCH (21:53)
[2019-06-15] MEDS: MAGNESIUM OXIDE 400 MG TAB (MAG-OX) PO SCH (21:53)
[2019-06-15] MEDS: POTASSIUM CHLORIDE 10 MEQ SR TABLET PO SCH (21:53)
[2019-06-15] MEDS: GABAPENTIN 400 MG CAP PO SCH (21:54)
[2019-06-15] MEDS: FAMOTIDINE 20 MG TAB PO SCH (21:54)
[2019-06-15] MEDS: DOCUSATE SODIUM 100 MG CAP PO SCH (21:54)
[2019-06-15] MEDS: cloNIDine 0.1 MG TAB PO SCH (21:54)
[2019-06-15] MEDS: PREGABALIN 75 MG CAP(LYRICA) PO SCH (21:55)
[2019-06-16 04:24] LABS: APPEARANCE, URINE CLEAR (CLEAR); BACTERIA, URINE AUTO NEGATIVE (NEGATIVE); BILIRUBIN, URINE AUTO NEGATIVE (NEGATIVE); BLOOD, URINE BLOOD NEGATIVE (NEGATIVE); COLOR, URINE YELLOW (YELLOW); GLUCOSE, URINE (UA) AUTO NEGATIVE (NEGATIVE); KETONE, URINE AUTO NEGATIVE (NEGATIVE); LEUKOCYTE ESTERASE, URINE AUTO NEGATIVE (NEGATIVE); NITRITE, URINE AUTO NEGATIVE (NEGATIVE); PROTEIN, URINE AUTO NEGATIVE (NEGATIVE); RBC, URINE AUTO 0 /HPF (0-3); SPECIFIC GRAVITY URINE AUTO 1.006 (1.002-1.035); SQUAMOUS EPITHELIAL CELL UR AU 1 /HPF (0-6); UROBILINOGEN, URINE AUTO 0.2 mg/dL (0.0-2.0); WBC, URINE AUTO 1 /HPF (0-3)
[2019-06-16 04:39] LABS: SODIUM,RANDOM URINE 45 MEQ/L
[2019-06-16 05:37] LABS: HEMOGLOBIN 9.3 g/dl (12.0-15.5); MEAN CORPUSCULAR HEMOGLOBIN 31.6 pg (27.0-33.0); MEAN CORPUSCULAR HGB CONC 33.2 g/dl (32.0-36.5); MEAN CORPUSCULAR VOLUME 95.2 fl (80.0-96.0); PLATELET COUNT, AUTOMATED 307 10^3/uL (150-450); RED BLOOD COUNT 2.94 10^6/uL (4.00-5.40); WHITE BLOOD COUNT 9.3 10^3/uL (4.0-10.0)
[2019-06-16] MEDS: PERCOCET 5MG/325MG TAB PO PRN ×2 (05:38→11:58)
[2019-06-16 05:58] LABS: BLOOD UREA NITROGEN 13 MG/DL (7-18); CALCIUM LEVEL 8.3 MG/DL (8.8-10.2); CARBON DIOXIDE LEVEL 29 MEQ/L (21-32); CHLORIDE LEVEL 97 MEQ/L (98-107); CREATININE FOR GFR 0.97 MG/DL (0.55-1.30); GLOMERULAR FILTRATION RATE > 60.0 (>45); GLUCOSE, FASTING 83 MG/DL (70-100); POTASSIUM SERUM 3.9 MEQ/L (3.5-5.1); SODIUM LEVEL 131 MEQ/L (136-145)
[2019-06-16 06:00] VITALS: BP 135/79
--- NOTE | 2019-06-16 08:18 | REP ---
Bilateral lower extremity deep vein duplex ultrasound: The deep veins demonstrate normal compression, normal Doppler color flow and normal Doppler waveforms with respiration and augmentation from the popliteal veins to the common femoral veins. Impression: There is no deep vein thrombus the right or left lower extremities . Electronically Signed by Alex Elias MD 06/16/2019 08:10 A
[2019-06-16] MEDS: PREGABALIN 75 MG CAP(LYRICA) PO SCH (08:41)
[2019-06-16 08:42] VITALS: BP 135/79
[2019-06-16] MEDS: DOCUSATE SODIUM 100 MG CAP PO SCH (08:42)
[2019-06-16] MEDS: cloNIDine 0.1 MG TAB PO SCH (08:42)
[2019-06-16] MEDS: FAMOTIDINE 20 MG TAB PO SCH (08:42)
[2019-06-16] MEDS: POTASSIUM CHLORIDE 10 MEQ SR TABLET PO SCH (08:42)
[2019-06-16] MEDS: DIVALPROEX 500MG *ER* TAB PO SCH (08:42)
[2019-06-16] MEDS: GABAPENTIN 400 MG CAP PO SCH (08:42)
[2019-06-16] MEDS: ENOXAPARIN 100MG/1ML SYRINGE (J1650) SC SCH (08:43)
[2019-06-16] MEDS: MAGNESIUM OXIDE 400 MG TAB (MAG-OX) PO SCH (08:43)
[2019-06-16] MEDS: ADVAIR HFA 230/21MCG INHALER INH SCH (08:49)
[2019-06-16] MEDS ORDERED: DULoxetine 30 MG CAP (CYMBALTA) PO SCH (09:00)
[2019-06-16] MEDS ORDERED: PROPRANOLOL 60 MG LA CAP PO SCH (09:00)
[2019-06-16] MEDS ORDERED: ENOXAPARIN 40 MG/0.4 ML SYRINGE (J1650) SC SCH (09:00)
[2019-06-16] MEDS ORDERED: FUROSEMIDE 20 MG TAB PO SCH (09:00)
--- NOTE | 2019-06-16 11:07 | HPEPDOC ---
General Date of Admission 06/15/19 Date of Service: Jun 15, 2019 Attending Physician: AIDA RYAN DO Chief Complaint The patient is a 68-year-old female admitted with a reason for visit of Abnormal Labs. Source: Patient Exam Limitations: No limitations Timing/Duration: Unsure Severity: Mild Associated Symptoms: Denies Symptoms History of Present Illness 68 yo female, recently hospitalized at [facility] 05/31/19 for hyponatremia, seen at PCP office and labs showed recurrent hyponatremia and patient sent to ED. Patient states recently treated last week for URI with zithromax and prednisone. States when left hospital at [facility] last week, her sodium was 135 (records pending). She had normal sodiums in 12/2018 and states no new medication changes. She denies N,V,D,Constipation, no WALSH, no fever, no CP, no SOB. States feels fine Home Medications Scheduled Clonidine Hcl (Clonidine HCl) 0.1 Mg Tablet, 0.1 MG PO BID, (Reported) Divalproex Sodium (Depakote ER) 500 Mg Tab, 500 MG PO TID, (Reported) REQUIRES BRAND NAME Duloxetine Hcl (Duloxetine HCl) 30 Mg Capsule.dr, 30 MG PO DAILY, (Reported) Furosemide (Furosemide) 20 Mg Tablet, 20 MG PO DAILY, (Reported) Gabapentin (Gabapentin) 400 Mg Capsule, 400 MG PO TID, (Reported) Magnesium Oxide (Magnesium Oxide) 400 Mg Tablet, 400 MG PO BID, (Reported) Nortriptyline HCl (Nortriptyline HCl) 25 Mg Capsule, 25 MG PO DAILY, (Reported) NEW MED, NOT STARTED Oxycodone HCl/Acetaminophen (Percocet 7.5-325 mg Tablet) 1 Tab Tab, 0.5 TAB PO BID, (Reported) Potassium Chloride (Potassium Chloride) 10 Meq Tab.er.prt, 10 MEQ PO BID, (Reported) Pregabalin (Lyrica) 75 Mg Cap, 75 MG PO TID, (Reported) Propranolol HCl (Propranolol HCl ER) 120 Mg Cap, 120 MG PO DAILY, (Reported) Ranitidine Hcl (Ranitidine HCl) 150 Mg Tablet, 1 TAB PO BID, (Reported) Salmeterol/Fluticasone (Advair 500-50 Diskus) 1 Each Blst.w.dev, 1 PUFF INH BID, (Reported) Scheduled PRN Acetaminophen (Acetaminophen) 500 Mg Tablet, 1,000 MG PO Q6H PRN for PAIN, (Reported) Albuterol Sulfate (Ventolin Hfa) 108 Mcg/Act Aer, 2 PUFFS INH Q4H PRN for SHORTNESS OF BREATH, (Reported) Docusate Sodium (Colace) 100 Mg Cap, 100 MG PO DAILY PRN for CONSTIPATION, (Reported) Allergies Coded Allergies: Cephalosporins (Verified Allergy, Severe, ANAPHYLAXIS, 02/14/19) latex (Verified Allergy, Severe, RASH, SWELLING, 02/14/19) Penicillins (Verified Allergy, Mild, RASH, 02/14/19) Sulfa (Sulfonamide Antibiotics) (Verified Allergy, Mild, RASH, VOMIT, 02/14/19) erythromycin base (Verified Allergy, Mild, RASH, 02/14/19) Past Medical History Medical History hypocellular myelodysplastic syndrome with refractory anemia CHF Tobacco dependence COPD HTN Degenerative joint disease hyponatremia Absence seizures Peripheral neuropathy secondary to chronic EtOH abuse in past Past surgery: Cholecystectomy Hysterectomy Family history: Father: DM/HTN Mother: CAD/Dementia Social Hx: quit tobacco in 2018 and restarted 1/2 ppd smoking 6 months ago Former ETOH user (off for several years) A-FIB/CHADSVASC A-FIB History Current/History of A-Fib/PAF?: No Review of Systems Other systems 10 systems reviewed and negative except as mentioned in HPI Physical Examination General Exam: Positive: Alert, Cooperative, No Acute Distress Eye Exam: Positive: PERRLA, Conjunctiva & lids normal, EOMI ENT Exam: Positive: Atraumatic, Mucous membr. moist/pink, Pharynx Normal Neck Exam: Positive: Supple, +2 carotid pulse wo bruit Chest Exam: Positive: Clear to auscultation, Normal air movement, Rhonchi (course scattered - cleared by cough); Negative: Rales, Wheezing Heart Exam: Positive: Rate Normal, Normal S1, Normal S2 Abdomen Exam: Positive: Normal bowel sounds, Soft (NT ND NABS) Extremity Exam: Positive: Edema, Normal pulses, Other (right leg with mild non pitting edema compared to left leg; right 3rd toe bruising; abrasions to bilateral toes/feet); Negative: Clubbing, Cyanosis Skin Exam: Positive: Nl turgor and temperature; Negative: Rash Neuro Exam: Positive: Strength at 5/5 X4 ext, Normal Tone, Sensation Intact, Cranial Nerves 3-12 NL, Reflexes 2+ Psych Exam: Positive: Mental status NL, Mood NL, Oriented x 3 Vital Signs Vital Signs Date Time Temp Pulse Resp B/P (MAP) Pulse Ox O2 Delivery O2 Flow Rate FiO2 06/15/19 15:16 62 18 153/75 (101) 96 Room Air 06/15/19 13:31 96.0 Laboratory Data Labs 24H Laboratory Tests 2 06/15/19 14:28: Immature Granulocyte % (Auto) 1.3, White Blood Count 6.1, Red Blood Count 3.10L, Hemoglobin 10.2L, Hematocrit 29.7L, Mean Corpuscular Volume 95.8, Mean Corpuscular Hemoglobin 32.9, Mean Corpuscular Hemoglobin Concent 34.3, Red Cell Distribution Width 13.9, Platelet Count 321, Neutrophils (%) (Auto) 85.8H, Lymphocytes (%) (Auto) 9.1L, Monocytes (%) (Auto) 3.6, Eosinophils (%) (Auto) 0.0, Basophils (%) (Auto) 0.2, Neutrophils # (Auto) 5.3, Lymphocytes # (Auto) 0.6L, Monocytes # (Auto) 0.2, Eosinophils # (Auto) 0.0, Basophils # (Auto) 0.0, Nucleated Red Blood Cells % (auto) 0.0 06/15/19 14:31: POC Glucose (Misc Panel) 119H, POC Sodium (Misc Panel) 123L, POC Potassium (Misc Panel) 4.2, POC Chloride (Misc Panel) 88L, POC Total CO2 (Misc Panel) 25.0, POC Blood Urea Nitrogen (Misc Panel 12, POC Ionized Calcium (Misc Panel) 4.6, POC Creatinine (Misc Panel) 0.9, POC Hematocrit (Misc Panel) 31.0L 06/15/19 15:14: Anion Gap 7L, Glomerular Filtration Rate > 60.0, Calcium Level 8.5L, Aspartate Amino Transf (AST/SGOT) 15, Alanine Aminotransferase (ALT/SGPT) 13, Alkaline Phosphatase 53, Total Bilirubin 0.3, Direct Bilirubin 0.1, Total Protein 6.3L, Albumin 2.8L, Albumin/Globulin Ratio 0.80L, Lipase 210 CBC/BMP Laboratory Tests 06/15/19 14:28 Red Blood Count 3.10 L, Mean Corpuscular Volume 95.8, Mean Corpuscular Hemoglobin 32.9, Mean Corpuscular Hemoglobin Concent 34.3, Red Cell Distribution Width 13.9, Neutrophils (%) (Auto) 85.8 H, Lymphocytes (%) (Auto) 9.1 L, Monocytes (%) (Auto) 3.6, Eosinophils (%) (Auto) 0.0, Basophils (%) (Auto) 0.2, Neutrophils # (Auto) 5.3, Lymphocytes # (Auto) 0.6 L, Monocytes # (Auto) 0.2, Eosinophils # (Auto) 0.0, Basophils # (Auto) 0.0 06/15/19 15:14 Assessment/Plan 1) hyponatremia - unclear etiology - started on IVF 100ccNS by ED provider. Repeat sodium at 2100 and in AM to avoid rapid rise in sodium. signed out to binder lockstitch. UA pending, urine sodium. consider fluid restriction once labs returned. If patient is euvolemic, consider starting samsca 2) Abscense seizure disorder - seizure precautions. follows with alisa Pearson. continue depakote, nuerotin, lyrica (no recent changes per pateint over past 2-3 years). n o recent seizure 3) leg edema - right more than left ; check US to r/o dvt 4) neuropathy secondary to prior history of etoh abuse 5) tobacco dependence - restarted smoking 6 months ago 6) COPD - nebs/MDI - no acute exacerbation. just finished course of prednisone and antibiotic when left [facility] last week. OBSERVATION CODE STATUS: FULL DVT PROPHYLAXIS: Lovenox Plan / VTE VTE Prophylaxis Ordered?: Yes AIDA RYAN DO Jun 15, 2019 16:57
--- NOTE | 2019-06-16 20:41 | DS.PDOC ---
Discharge Summary General Date of Admission Jun 15, 2019 at 16:52 Date of Discharge 06/16/19 Attending Physician: AIDA RYAN DO Discharge Summary PROCEDURES PERFORMED DURING STAY: none ADMITTING DIAGNOSES: 1. hyponatremia DISCHARGE DIAGNOSES: 1. hyponatremia 2. abscense seizures - stable 3. leg edema 4. peripheral neuropathy 5. tobacco dependence 6. COPD without exacerbation COMPLICATIONS/CHIEF COMPLAINT: Hyponatremia. HISTORY OF PRESENT ILLNESS: 68 yo female, recently hospitalized at [facility] 05/31/19 for hyponatremia, seen at PCP office and labs showed recurrent hy ponatremia and patient sent to ED. Patient states recently treated last week for URI with zithromax and prednisone. States when left hospital at [facility] last week, her sodium was 135 (records pending). She had normal sodiums in 12/2018 and states no new medication changes. She denies N,V,D,Constipation, no WALSH, no fever, no CP, no SOB. States feels fine. See H&P for details HOSPITAL COURSE: patient placed under observation. she was given IVF in ED. UA showed SG of 1.006 and it was suspected that her hyponatremia was due to water intoxication (pateint only drinks ren alie pop) and/ or medications. Fluid restriction ordered and her sodium improved to 131 prior to discharge. She remained asymptomatic. She had leg swelling right more than left and venous US showed no DVT. She was advised that she is on medications within the same family (ie gabapentin and lyrica) and may need her neurologist to review possibility of hyponatremia associated with medications. She is being discharge in stable condition DISCHARGE MEDICATIONS: Please see below. ALLERGIES: Please see below. PHYSICAL EXAMINATION ON DISCHARGE: VITAL SIGNS: Please see below. General: pleasant, NAD AAOx3 HRRR LCTA Ext: trace edema LABORATORY DATA: Please see below. PROGNOSIS: good ACTIVITY: as tolerated DIET: regular with 1000cc fluid restriction DISCHARGE PLAN: discharge home DISPOSITION: . DISCHARGE INSTRUCTIONS: follow up with neurology as previously scheduled follow up with PCP in 3-5 days to review sodium/labs lab on 06/20/19 for BMP fluid restriction 1000cc per 24 hours DISCHARGE CONDITION:stable TIME SPENT ON DISCHARGE: 30 minutes. Vital Signs/I&Os Vital Signs Date Time Temp Pulse Resp B/P (MAP) Pulse Ox O2 Delivery O2 Flow Rate FiO2 06/16/19 11:58 18 06/16/19 08:42 60 135/79 06/16/19 06:00 96.5 93 06/15/19 18:15 Room Air I&O- Last 24 Hours up to 6 AM 06/16/19 06:00 Intake Total 640 ml Output Total 800 ml Balance -160 ml Laboratory Data Labs 24H Laboratory Tests 2 06/15/19 14:28: Immature Granulocyte % (Auto) 1.3, White Blood Count 6.1, Red Blood Count 3.10L, Hemoglobin 10.2L, Hematocrit 29.7L, Mean Corpuscular Volume 95.8, Mean Corpuscular Hemoglobin 32.9, Mean Corpuscular Hemoglobin Concent 34.3, Red Cell Distribution Width 13.9, Platelet Count 321, Neutrophils (%) (Auto) 85.8H, Lymphocytes (%) (Auto) 9.1L, Monocytes (%) (Auto) 3.6, Eosinophils (%) (Auto) 0.0, Basophils (%) (Auto) 0.2, Neutrophils # (Auto) 5.3, Lymphocytes # (Auto) 0.6L, Monocytes # (Auto) 0.2, Eosinophils # (Auto) 0.0, Basophils # (Auto) 0.0, Nucleated Red Blood Cells % (auto) 0.0 06/15/19 14:31: POC Glucose (Misc Panel) 119H, POC Sodium (Misc Panel) 123L, POC Potassium (Misc Panel) 4.2, POC Chloride (Misc Panel) 88L, POC Total CO2 (Misc Panel) 25.0, POC Blood Urea Nitrogen (Misc Panel 12, POC Ionized Calcium (Misc Panel) 4.6, POC Creatinine (Misc Panel) 0.9, POC Hematocrit (Misc Panel) 31.0L 06/15/19 15:14: Anion Gap 7L, Glomerular Filtration Rate > 60.0, Calcium Level 8.5L, Aspartate Amino Transf (AST/SGOT) 15, Alanine Aminotransferase (ALT/SGPT) 13, Alkaline Phosphatase 53, Total Bilirubin 0.3, Direct Bilirubin 0.1, Total Protein 6.3L, Albumin 2.8L, Albumin/Globulin Ratio 0.80L, Lipase 210 06/16/19 04:09: Urine Appearance CLEAR, Urine Color YELLOW, Urine pH 7.0, Urine Specific [place] 1.006, Urine Protein NEGATIVE, Urine Glucose (UA) NEGATIVE, Urine Ketones NEGATIVE, Urine Urobilinogen 0.2, Urine Bilirubin NEGATIVE, Urine Leukocyte Esterase NEGATIVE, Urine Blood NEGATIVE, Urine Nitrite NEGATIVE, Urine WBC (Auto) 1, Urine RBC (Auto) 0, Urine Hyaline Casts (Auto) 0, Urine Bacteria (Auto) NEGATIVE, Urine Squamous Epithelial Cells 1, Urine Sperm (Auto) , Urine Random Sodium 45 06/16/19 05:04: Nucleated Red Blood Cells % (auto) 0.0, Anion Gap 5L, Glomerular Filtration Rate > 60.0, Blood Urea Nitrogen 13, Creatinine 0.97, Sodium Level 131L, Potassium Level 3.9, Chloride Level 97L, Carbon Dioxide Level 29, Calcium Level 8.3L CBC/BMP Laboratory Tests 06/15/19 14:28 Red Blood Count 3.10 L, Mean Corpuscular Volume 95.8, Mean Corpuscular Hemoglobin 32.9, Mean Corpuscular Hemoglobin Concent 34.3, Red Cell Distribution Width 13.9, Neutrophils (%) (Auto) 85.8 H, Lymphocytes (%) (Auto) 9.1 L, Monocytes (%) (Auto) 3.6, Eosinophils (%) (Auto) 0.0, Basophils (%) (Auto) 0.2, Neutrophils # (Auto) 5.3, Lymphocytes # (Auto) 0.6 L, Monocytes # (Auto) 0.2, Eosinophils # (Auto) 0.0, Basophils # (Auto) 0.0 06/15/19 15:14 06/15/19 21:15 06/16/19 05:04 Red Blood Count 2.94 L, Mean Corpuscular Volume 95.2, Mean Corpuscular Hemoglobin 31.6, Mean Corpuscular Hemoglobin Concent 33.2, Red Cell Distribution Width 14.0, Calcium Level 8.3 L Discharge Medications Scheduled Clonidine Hcl (Clonidine HCl) 0.1 Mg Tablet, 0.1 MG PO BID, (Reported) Divalproex Sodium (Depakote ER) 500 Mg Tab, 500 MG PO TID, (Reported) REQUIRES BRAND NAME Duloxetine Hcl (Duloxetine HCl) 30 Mg Capsule.dr, 30 MG PO DAILY, (Reported) Furosemide (Furosemide) 20 Mg Tablet, 20 MG PO DAILY, (Reported) Gabapentin (Gabapentin) 400 Mg Capsule, 400 MG PO TID, (Reported) Magnesium Oxide (Magnesium Oxide) 400 Mg Tablet, 400 MG PO BID, (Reported) Nortriptyline HCl (Nortriptyline HCl) 25 Mg Capsule, 25 MG PO DAILY, (Reported) NEW MED, NOT STARTED Oxycodone HCl/Acetaminophen (Percocet 7.5-325 mg Tablet) 1 Tab Tab, 0.5 TAB PO BID, (Reported) Potassium Chloride (Potassium Chloride) 10 Meq Tab.er.prt, 10 MEQ PO BID, (Reported) Pregabalin (Lyrica) 75 Mg Cap, 75 MG PO TID, (Reported) Propranolol HCl (Propranolol HCl ER) 120 Mg Cap, 120 MG PO DAILY, (Reported) Ranitidine Hcl (Ranitidine HCl) 150 Mg Tablet, 1 TAB PO BID, (Reported) Salmeterol/Fluticasone (Advair 500-50 Diskus) 1 Each Blst.w.dev, 1 PUFF INH BID, (Reported) Scheduled PRN Acetaminophen (Acetaminophen) 500 Mg Tablet, 1,000 MG PO Q6H PRN for PAIN, (R eported) Albuterol Sulfate (Ventolin Hfa) 108 Mcg/Act Aer, 2 PUFFS INH Q4H PRN for SHORTNESS OF BREATH, (Reported) Docusate Sodium (Colace) 100 Mg Cap, 100 MG PO DAILY PRN for CONSTIPATION, (Reported) Allergies Coded Allergies: Cephalosporins (Verified Allergy, Severe, ANAPHYLAXIS, 02/14/19) latex (Verified Allergy, Severe, RASH, SWELLING, 02/14/19) Penicillins (Verified Allergy, Mild, RASH, 02/14/19) Sulfa (Sulfonamide Antibiotics) (Verified Allergy, Mild, RASH, VOMIT, 02/14/19) erythromycin base (Verified Allergy, Mild, RASH, 02/14/19) AIDA RYAN DO Jun 16, 2019 12:03
== END 2019-06-16 13:29 | disposition home or self-care (01) ==
LOC: M ED 13:30 → M ED INP 16:52 → M MSPAV 20:48
PROVIDERS: ADMIT Family Medicine; ATTEND Family Medicine
DX: E87.1 Hypo-osmolality and hyponatremia (principal); G40.A09 Absence epileptic syndrome, not intractable, without status epilepticus; R60.0 Localized edema; G62.9 Polyneuropathy, unspecified; F10.11 Alcohol abuse, in remission; J44.9 Chronic obstructive pulmonary disease, unspecified; D46.4 Refractory anemia, unspecified; D46.Z Other myelodysplastic syndromes; I50.9 Heart failure, unspecified; I11.0 Hypertensive heart disease with heart failure; M19.90 Unspecified osteoarthritis, unspecified site; F17.200 Nicotine dependence, unspecified, uncomplicated; Z79.899 Other long term (current) drug therapy; Z79.891 Long term (current) use of opiate analgesic; Z79.51 Long term (current) use of inhaled steroids; Z88.0 Allergy status to penicillin; Z88.1 Allergy status to other antibiotic agents; Z88.2 Allergy status to sulfonamides; Z91.040 Latex allergy status; Z85.830 Personal history of malignant neoplasm of bone
CPT/HCPCS: 36415; 71045; 80047; 80048; 80076; 81001; 83690; 84295; 84300; 85025; 85027; 93041; 93970; 96372; 96374; 99285; G0378; J1650; J1885

== ENCOUNTER → 2019-12-20 | Outpatient (REF) | payer MEDICARE, MEDICAID ==
[~2019-12-20] MED LIST changes: +ADV500INH INH; +CLIN300C5 PO; +CLON0.5T2 PO; -CLON0.5T8 PO; +DULO30CA9 PO; +FURO20TA2 PO; +MAGN400T3 PO; +NORT25CA2 PO; +POTA10TA67 PO; +RANI1TAB38 PO
[2019-12-20 13:44] LABS: DRVV SCREEN 32.8 SEC
[2019-12-20 13:46] LABS: PTT LUPUS TYPE ANTICOAG SCREEN 0.8 (0-1.2)
[2019-12-22 00:06] LABS: ANTINUCLEAR ANTIBODIES DIRECT Negative (Negative)
== END ==
LOC: M LABNEURO 12:48
PROVIDERS: ATTEND Psychiatry & Neurology Neurology
DX: M32.9 Systemic lupus erythematosus, unspecified (principal)